=== PATIENT | female | born 1960 | race Caucasian/White ===

== ENCOUNTER → 2020-02-08 | Outpatient (CLI) | payer OTHER | END | disposition home or self-care (01) | LOC: CVU 10:47 | PROVIDERS: ATTEND Internal Medicine Cardiovascular Disease | DX: I08.1 Rheumatic disorders of both mitral and tricuspid valves (principal); I27.0 Primary pulmonary hypertension | CPT/HCPCS: 93306; 93356 ==

== ENCOUNTER 2020-10-29 11:09 | Day surgery (SDC) | payer OTHER ==
[~2020-10-29] VITALS: Ht 170.2 cm; Wt 95.0 kg
[2020-10-29] MEDS ORDERED: POTA10TA PO (11:39)
[2020-10-29] MEDS ORDERED: TADA20TA33 PO (11:39)
[2020-10-29] MEDS ORDERED: MACI10TA PO (11:39)
[2020-10-29] MEDS ORDERED: ASPI81TA45 PO (11:39)
[2020-10-29] MEDS ORDERED: BUME2TAB3 PO (11:39)
[2020-10-29] MEDS ORDERED: MULT-508 PO (11:39)
[2020-10-29] MEDS ORDERED: METH10TA2 PO (11:39)
[2020-10-29] MEDS ORDERED: ALBU8.5H8 INH (11:39)
[2020-10-29] MEDS ORDERED: DILT120T4 PO (11:39)
[2020-10-29] MEDS ORDERED: UBID100C41 PO (11:48)
[2020-10-29] MEDS ORDERED: GLUC15006 PO (11:48)
[2020-10-29] MEDS ORDERED: DIPHENHYDRAMINE 50 MG/ML, 1ML IVPush ONE (12:00)
[2020-10-29 12:05] VITALS: BP 136/88
[2020-10-29 12:38] LABS: BASOPHILS % (AUTO) 1 % (0-1); EOSINOPHILS % (AUTO) 4 % (1-7); LYMPHOCYTES % (AUTO) 57 % (22-44); MEAN CORPUSCULAR HEMOGLOBIN 31.9 pg (27.0-34.8); MEAN CORPUSCULAR HGB CONC 34.2 g/dL (32.4-35.8); MEAN PLATELET VOLUME 6.7 fL (7.4-10.4); MONOCYTES % (AUTO) 7 % (2-9); NEUTROPHILS % (AUTO) 32 % (42-75); PLATELET COUNT 314 x10^3/uL (130-400); RED BLOOD COUNT 5.03 x10^6/uL (3.82-5.3); RED CELL DISTRIBUTION WIDTH 13.6 % (9.6-15.2)
[2020-10-29 12:48] LABS: ANION GAP 6 mmol/L (5-15); CHLORIDE 98 mmol/L (98-107); CREATININE 1.09 mg/dL (0.55-1.02)
[2020-10-29 13:07] LABS: MD SCAN
[2020-10-29] MEDS ORDERED: MIDAZOLAM 1 MG/ML, 2ML ONE (13:26)
[2020-10-29] MEDS ORDERED: LIDOCAINE 2%, 20ML ONE (13:26)
[2020-10-29] MEDS ORDERED: FENTANYL PF 100 MCG/2ML ONE (13:26)
[2020-10-29 13:32] LABS: INTERNATIONAL NORMALIZED RATIO 1.06 (0.93-1.1); PROTHROMBIN TIME 11.3 Seconds (9.6-11.5)
[2020-10-29] MEDS ORDERED: DIPHENHYDRAMINE 50 MG/ML, 1ML ONE (14:02)
[2020-10-29] MEDS ORDERED: SPIR25TA PO (15:13)
== END 2020-10-29 16:17 | disposition home or self-care (01) ==
LOC: CACL 11:09
PROVIDERS: ATTEND Internal Medicine Cardiovascular Disease
DX: I27.20 Pulmonary hypertension, unspecified (principal); G47.30 Sleep apnea, unspecified; E66.3 Overweight; Z68.31 Body mass index [BMI] 31.0-31.9, adult; Z79.01 Long term (current) use of anticoagulants; Z79.82 Long term (current) use of aspirin; Z79.899 Other long term (current) drug therapy; Z87.891 Personal history of nicotine dependence; Z88.5 Allergy status to narcotic agent
CPT/HCPCS: 36415; 80048; 83880; 85025; 85610; 93451; 99156; C1769; C1894; J1200; J2250; J3010